=== PATIENT | male | born 1990 | race Caucasian/White ===

== ENCOUNTER 2023-02-02 10:18 | Emergency (ER) | payer OTHER, SELFPAY ==
[2023-02-02 10:26] VITALS: BP 158/85; PULSE 73; RESP 18; TEMP 37.1; O2SAT 98; BMI 34.2
--- NOTE | 2023-02-02 10:28 | ECG_ITS ---
Test Reason : syncope Blood Pressure : / mmHG Vent. Rate : 069 BPM Atrial Rate : 069 BPM P-R Int : 142 ms QRS Dur : 092 ms QT Int : 378 ms P-R-T Axes : 062 027 023 degrees QTc Int : 405 ms Normal sinus rhythm Normal ECG No previous ECGs available Referred By: Generic ED Physician Electronically Signed By:JORDAN VILLARREAL
--- NOTE | 2023-02-02 10:51 | PC.NURSE ---
near syncope while pct was drawing labs- given juice and ice pack will reattempt
[2023-02-02 10:52] LABS: Glucose, Whole Blood 97 mg/dL (60-115)
--- NOTE | 2023-02-02 11:47 | ED_ITS ---
HPI - Syncope General Chief Complaint: Syncope Stated Complaint: passed out at gym this am Time Seen by Provider: 02/02/23 11:28 Source: patient Mode of arrival: ambulatory Limitations: no limitations History of Present Illness HPI narrative: Patient is a 32 yo male presenting after a syncopal episode approximately 3 hours ago while working out at the gym. Patient stated he felt dizzy following a cardio workout on the treadmill, stumbled and sat down, and when he tried to stand up he lost consciousness for 30-45 seconds. Patient stated that when he regained consciousness he still felt lightheaded but it was getting better. Patient stated it was his first time at the gym in a while and he only had an egg and half a bowl of cereal for breakfast. Denied similar episodes in the past. Denied SOB, chest pain, NVD, or headache. Denied hitting his head. MD complaint: loss of consciousness Onset (ago): hour(s) (3) Duration of episode: 40 -: second(s) Description of event: other (post-event lightheadedness ) Prodromal symptoms: lightheaded Context: standing up and other (following exertion) Injuries sustained associated with event: none Current symptoms: lightheaded Treatments prior to arrival: none Related Data Allergies Allergy/AdvReac Type Severity Reaction Status Date / Time No Known Allergies Allergy Verified 02/02/23 10:29 Review of Systems Review of Systems: Yes all other systems are reviewed and are negative Cardiovascular: Cardiovascular: Reports syncope and Reports lightheadedness Neurologic: Reports syncope PMFSH Social History Social History Advance Directives: No Advance Directives Information Provided: Yes Physical Exam Vital Signs: Vital Signs: Last Vital Signs Temp 98.8 F 02/02/23 10:26 Pulse 90 02/02/23 12:50 Resp 18 02/02/23 10:26 BP 131/80 02/02/23 12:50 Pulse Ox 98 02/02/23 10:26 O2 Del Method Room Air 02/02/23 10:26 BMI result Body Mass Index 34.2 Appearance: Alert. Oriented X3. No acute distress. CVS: Normal heart rate and rhythm. Pulses normal. Respiratory: No respiratory distress. Breath sounds normal. Skin: Skin warm and dry. Normal skin color. Normal skin turgor. No rashes. Extremities: No lower extremity edema. Neuro: Oriented X 3. Medical Decision Making Medical Decision Making MDM Narrative: Patient is a 32 yo male presenting after a syncopal episode approximately 3 hours ago while working out at the gym. Denied hitting his head. POC glucose was 97 mg/dL, EKG showed no abnormalities. Most likely exercise induced vasovagal syncope. lab workup was unremarkable. EKG was normal with no arrhythmias or ischemic changes. Orthostatic vitals were normal. He feels well and is stable. Patient discharged home. Differential Diagnosis Differential Diagnoses: The differential diagnosis associated with the presentation includes vasovagal syncope, cardiac syncope, cardiac arrhythmia, dehydration, electrolyte abnormality, anemia, doubt PE Lab Data [facility] Lab Attestation statement: I reviewed the patient's lab results. 02/02/23 12:09 02/02/23 12:09 Labs: Lab Results 02/02/23 02/02/23 02/02/23 Range/Units 10:31 12:09 12:09 WBC 10.5 (4.8-10.8) X10*3/uL RBC 5.23 (4.60-5.80) X10*6/uL Hgb 15.3 (14.0-18.0) g/dl Hct 45.0 (42.0-52.0) % MCV 86.0 (80.0-98.0) fL MCH 29.3 (27.0-33.0) pg MCHC 34.0 (31.0-36.0) g/dl RDW 12.7 (11.0-16.0) % Plt Count 257 (160-400) X10*3/uL MPV 9.7 (9.4-12.4) fL Immature Gran % (Auto) 0.4 (0.0-0.4) % Neut % (Auto) 68.4 (45-73) % Lymph % (Auto) 19.0 L (20-40) % [place] % (Auto) 11.0 (2-11) % Eos % (Auto) 1.0 (0-4) % Baso % (Auto) 0.2 (0-2) % Lymph # (Auto) 2.0 (1.2-4.9) X10*3/uL [place] # (Auto) 1.2 (0.1-1.2) X10*3/uL Eos # (Auto) 0.1 (0.0-0.4) X10*3/uL Baso # (Auto) 0.0 (0.0-0.2) X10*3/uL Abs Immat Gran (auto) 0.04 H (0.00-0.03) X10*3/uL Absolute Neuts (auto) 7.2 (2.0-8.3) x10*3/uL Absolute Nucleated RBC 0.000 (0.0-0.012) X10*3/uL Nucleated RBC % (auto) 0.0 (0.0-0.2) /100WBC Sodium 139 (135-145) mmol/L Potassium 4.4 (3.3-5.1) mmol/L Chloride 107 (96-108) mmol/L Carbon Dioxide 22 (22-29) mmol/L Anion Gap 14 (12-20) BUN 14 (9-16) mg/dL Creatinine 0.96 (0.5-1.4) mg/dL Estim Creat Clear Calc 140.0 Estimated GFR > 60 POC Glucose 97 (60-115) mg/dL Random Glucose 93 (60-115) mg/dL Calcium 9.5 (8.4-10.2) mg/dL Total Bilirubin 0.6 (0.0-1.0) mg/dL AST 14 (5-37) U/L ALT 24 (0-40) U/L Alkaline Phosphatase 50 (39-117) U/L Total Protein 7.4 (6.5-8.0) g/dL Albumin 4.3 (3.5-5.0) g/dL Independent Interpretation I performed an independent interpretation of an: EKG Interpretation: EKG normal sinus rhythm for ventricular rate 69 beats per minute normal OK intervals no ST segment elevations or depressions Critical Care Time Critical Care Time Critical Care Time: No Discharge Plan Discharge Clinical Impression: Vasovagal syncope Patient Disposition: Home, Self-Care Instructions: Syncope (DC) Additional Instructions: Your lab workup today was normal. Your EKG today was normal. Gradually increase exercise moving forward and ensure you are eating before and staying hydrated. If you develop new or worsening symptoms call 911 or come back to the ER for further evaluation. Referrals: Chito Galaviz MD [Primary Care Provider] - (syncopal event) Stand Alone Forms: Work/School Release
[2023-02-02 12:13] LABS: MANUAL DIFF FLAG NO
[2023-02-02 12:17] LABS: Basophils Percent Auto 0.2 % (0-2); Eosinophils Absolute Auto 0.1 X10*3/uL (0.0-0.4); Hemoglobin 15.3 g/dl (14.0-18.0); Imm Gran Abs Auto 0.04 X10*3/uL (0.00-0.03); Imm Gran Pct Auto 0.4 % (0.0-0.4); Mean Corpuscular Hemoglobin 29.3 pg (27.0-33.0); Mean Platelet Volume 9.7 fL (9.4-12.4); Monocytes Absolute Auto 1.2 X10*3/uL (0.1-1.2); Neutrophils Absolute Auto 7.2 x10*3/uL (2.0-8.3); Neutrophils Percent Auto 68.4 % (45-73); Platelet Count 257 X10*3/uL (160-400); Red Blood Count 5.23 X10*6/uL (4.60-5.80); Red Cell Distribution Width 12.7 % (11.0-16.0); White Blood Count 10.5 X10*3/uL (4.8-10.8)
[2023-02-02 12:29] LABS: Alanine Aminotransferase 24 U/L (0-40); Albumin Level 4.3 g/dL (3.5-5.0); Alkaline Phosphatase 50 U/L (39-117); Anion Gap 14 (12-20); Aspartate Amino Transferase 14 U/L (5-37); Bilirubin Total 0.6 mg/dL (0.0-1.0); Blood Urea Nitrogen 14 mg/dL (9-16); Calcium 9.5 mg/dL (8.4-10.2); Carbon Dioxide 22 mmol/L (22-29); Chloride 107 mmol/L (96-108); Estimated Glomerular Filt Rate > 60; Glucose Random 93 mg/dL (60-115); Potassium 4.4 mmol/L (3.3-5.1); Sodium 139 mmol/L (135-145); Total Protein 7.4 g/dL (6.5-8.0)
[2023-02-02 12:48] VITALS: BP 130/76; PULSE 74
[2023-02-02 12:49] VITALS: BP 136/78; PULSE 78
[2023-02-02 12:50] VITALS: BP 131/80; PULSE 90
[2023-02-02 12:51] VITALS: BP 126/73; PULSE 78; RESP 12; TEMP 36.8; O2SAT 95
== END 2023-02-02 13:07 | disposition home or self-care (01) ==
PROVIDERS: Physician Assistant; Emergency Provider Student in an Organized Health Care Education/Training Program; PCP Internal Medicine
DX: R55 Syncope and collapse (principal); Z79.899 Other long term (current) drug therapy
CPT/HCPCS: 36415; 80053; 82947; 85025; 93005; 99283; 99284